=== PATIENT | female | born 1945 | race Caucasian/White ===

== ENCOUNTER 2021-08-03 06:17 | Inpatient (IN) | payer OTHER, MEDICAID ==
[~2021-08-03] VITALS: Ht 162.6 cm; Wt 49.0 kg
[2021-08-03] MEDS: BUDESONIDE (INHALATION) 180 MCG IH IN SCH (05:50)
[2021-08-03] MEDS ORDERED: SODIUM CHLORIDE 0.9% 1,000 ML IVB ONE (08:30)
[2021-08-03] MEDS ORDERED: SODIUM CHLORIDE 0.9% 1,000 ML IV ONE (08:30)
[2021-08-03] MEDS ORDERED: CHOLECALCIFEROL (VITD3) 2,000 UNIT CAP/TAB PO ONE (10:00)
[2021-08-03] MEDS ORDERED: ZINC SULFATE 220mg CAP or TAB PO ONE (10:00)
[2021-08-03] MEDS ORDERED: cefTRIAXone 1GM/50ML D5W 50 ML IV ONE (10:00)
[2021-08-03] MEDS ORDERED: DexAMETHasone SOD PHOS 10MG/1ML VIAL INJ IV ONE (10:00)
[2021-08-03] MEDS ORDERED: ASCORBIC ACID 500 MG TAB PO ONE (10:00)
[2021-08-03] MEDS ORDERED: AZITHROMYCIN 500MG/ 250ML 250 ML IV ONE (10:00)
[2021-08-03 10:46] LABS: Albumin 3.3 g/dL (3.4-5.0); Calcium 8.4 mg/dL (8.5-10.1); Potassium 4.2 mmol/L (3.5-5.1)
[2021-08-03 10:51] LABS: BUN/Creatinine Ratio 20.7; Bilirubin, Total 1.1 mg/dL (0.2-1.0); Total Protein 6.7 g/dL (6.4-8.2)
[2021-08-03 11:54] LABS: Basophils # (auto) 0 10 ^3/uL (0-0.2); Basophils % (auto) 0.4 % (0.0-2.0); Eosinophils # (auto) 0 10 ^3/uL (0-0.8); Hematocrit 41.2 % (36.0-46.0); Hemoglobin 14.4 g/dL (12.2-16.2); Mean Corpuscular Hemoglobin 32.8 pg (28.0-32.0); Mean Corpuscular Volume 93.8 fL (80.0-100.0); Monocytes # (auto) 0.5 10 ^3/uL (0-1.3); Monocytes % (auto) 5.1 % (0.0-12.0); Neutrophils # (auto) 7.8 10 ^3/uL (1.6-8.6); Neutrophils % (auto) 83.5 % (37.0-80.0); Nucleated Red Blood Cells % 0.1 %; Red Blood Cells 4.39 10^6/uL (4.0-5.20); Red Cell Distribution Width 13.3 % (11.8-14.3); White Blood Cell 9.4 10^3/uL (4.4-10.8)
[2021-08-03] MEDS ORDERED: ACETAMINOPHEN 325 MG TAB PO ONE (12:00)
[2021-08-03] MEDS ORDERED: NITROGLYCERIN 0.4 MG SL TAB SL PRN (17:45)
[2021-08-03] MEDS ORDERED: MORPHINE SULFATE INJECTION 2 MG/ML SYRG IV PRN (17:45)
[2021-08-03] MEDS ORDERED: REMDESIVIR PER PHARMACY 0 ML IV SCH (19:30)
[2021-08-03 20:39] LABS: Calcium 8.4 mg/dL (8.5-10.1); Magnesium 2.8 mg/dL (1.6-2.6)
[2021-08-03 20:47] LABS: BUN/Creatinine Ratio 25.8; Bilirubin, Total 0.8 mg/dL (0.2-1.0); CRP High Sensitivity 13.2 mg/dL (< 0.3); Total Protein 6.2 g/dL (6.4-8.2)
[2021-08-03 20:55] LABS: Thyroid Stimulating Hormone 0.36 uIU/mL (0.358-3.74)
[2021-08-03 21:26] VITALS: BP 132/91
[2021-08-03] MEDS: ENOXAPARIN SOD 40 MG/0.4 ML SYRINGE SC SCH (23:06)
[2021-08-04] VITALS (8 sets, daily range): BP systolic 109–156; BP diastolic 64–91
[2021-08-04] MEDS ORDERED: TIOT1AER2 IN (00:51)
[2021-08-04] MEDS ORDERED: LISI40TA11 PO (00:51)
[2021-08-04] MEDS ORDERED: GABA600T PO (00:51)
[2021-08-04] MEDS: BUDESONIDE (INHALATION) 180 MCG IH IN SCH ×3 (06:28→22:00)
[2021-08-04 06:53] LABS: Basophils # (auto) 0 10 ^3/uL (0-0.2); Basophils % (auto) 0.2 % (0.0-2.0); Eosinophils # (auto) 0 10 ^3/uL (0-0.8); Hematocrit 41.8 % (36.0-46.0); Hemoglobin 14.8 g/dL (12.2-16.2); Lymphocytes # (auto) 1.3 10 ^3/uL (0.4-5.4); Lymphocytes % (auto) 11.1 % (10.0-50.0); Mean Corpuscular Hgb Conc. 35.5 g/dL (32.0-36.0); Monocytes # (auto) 0.4 10 ^3/uL (0-1.3); Monocytes % (auto) 3.6 % (0.0-12.0); Neutrophils # (auto) 9.9 10 ^3/uL (1.6-8.6); Neutrophils % (auto) 85.1 % (37.0-80.0); Red Blood Cells 4.49 10^6/uL (4.0-5.20); Red Cell Distribution Width 13.4 % (11.8-14.3); White Blood Cell 11.6 10^3/uL (4.4-10.8)
[2021-08-04 07:06] LABS: Calcium 8.7 mg/dL (8.5-10.1); Potassium 3.6 mmol/L (3.5-5.1)
[2021-08-04 07:11] LABS: BUN/Creatinine Ratio 44.6; Bilirubin, Total 0.7 mg/dL (0.2-1.0); INR 1.05 (0.9-1.15); Partial Thromboplastin Time 36.6 sec (23.6-33.0)
[2021-08-04] MEDS: AZITHROMYCIN 500MG/ 250ML 250 ML IV SCH (09:03)
[2021-08-04] MEDS: DexAMETHasone SOD PHOS 10MG/1ML VIAL INJ IV SCH (09:03)
[2021-08-04] MEDS: ZINC SULFATE 220mg CAP or TAB PO SCH (09:04)
[2021-08-04] MEDS: CHOLECALCIFEROL (VITD3) 2,000 UNIT CAP/TAB PO SCH (09:04)
[2021-08-04] MEDS: ASCORBIC ACID 1,000 MG TAB PO SCH (09:04)
[2021-08-04] MEDS: IVERMECTIN 3 MG TAB PO SCH (09:04)
[2021-08-04] MEDS: ENOXAPARIN SOD 40 MG/0.4 ML SYRINGE SC SCH ×2 (10:00→22:00)
[2021-08-04] MEDS: ACETAMINOPHEN 325 MG TAB PO PRN (11:34)
[2021-08-04] MEDS ORDERED: hydrALAZINE HCL 20 MG/ML VL IV PRN (12:45)
[2021-08-04] MEDS ORDERED: levoFLOXacin 500MG 100 ML IV ONE (12:45)
[2021-08-04] MEDS: GABAPENTIN 300 MG CAP PO SCH ×2 (14:20→22:00)
[2021-08-04] MEDS ORDERED: REMDESIVIR 200 MG in NS 210ml LOADING DOSE ADULT IV ONE (15:00)
[2021-08-04] MEDS: ALBUTEROL SULF HFA 90MCG INH 200DOSE IN PRN (21:31)
[2021-08-04] MEDS: ACETAMINOPHEN 500 MG TAB PO PRN (22:01)
[2021-08-04 22:26] LABS: Urine Bacteria NONE SEEN /hpf (None Seen); Urine Blood 1+ /uL (Negative); Urine Mucus FEW (None Seen); Urine Specific Gravity 1.041 (1.001-1.035); Urine WBC 2 /hpf (0 - 5)
[2021-08-05 05:00] VITALS: BP 108/64
[2021-08-05 05:47] LABS: Albumin 2.5 g/dL (3.4-5.0); BUN/Creatinine Ratio 62.3; Calcium 7.9 mg/dL (8.5-10.1); Potassium 3.1 mmol/L (3.5-5.1)
[2021-08-05 05:50] LABS: Bilirubin, Total 0.6 mg/dL (0.2-1.0); Total Protein 4.8 g/dL (6.4-8.2)
[2021-08-05] MEDS: GABAPENTIN 300 MG CAP PO SCH ×3 (06:15→22:34)
[2021-08-05 09:00] VITALS: BP 121/73
[2021-08-05] MEDS: levoFLOXacin 250MG 50 ML IV SCH (09:52)
[2021-08-05] MEDS: DexAMETHasone SOD PHOS 10MG/1ML VIAL INJ IV SCH (09:52)
[2021-08-05] MEDS: ZINC SULFATE 220mg CAP or TAB PO SCH (09:52)
[2021-08-05] MEDS: BENAZEPRIL HCL 10 MG TAB PO SCH (09:53)
[2021-08-05] MEDS: IVERMECTIN 3 MG TAB PO SCH (09:53)
[2021-08-05] MEDS: CHOLECALCIFEROL (VITD3) 2,000 UNIT CAP/TAB PO SCH (09:53)
[2021-08-05] MEDS: ENOXAPARIN SOD 40 MG/0.4 ML SYRINGE SC SCH ×2 (09:53→22:35)
[2021-08-05] MEDS: ASCORBIC ACID 1,000 MG TAB PO SCH (09:53)
[2021-08-05] MEDS ORDERED: levoFLOXacin 500MG 100 ML IV SCH (10:00)
[2021-08-05] MEDS: BUDESONIDE (INHALATION) 180 MCG IH IN SCH ×2 (10:00→21:10)
[2021-08-05] MEDS: AZITHROMYCIN 500MG/ 250ML 250 ML IV SCH (11:25)
[2021-08-05] MEDS ORDERED: POTASSIUM CHL 20 Meq TABLET PO ONE (12:00)
[2021-08-05 13:00] VITALS: BP 123/67
[2021-08-05] MEDS ORDERED: VANCOMYCIN PER PHARMACY 0 MG IV SCH (14:00)
[2021-08-05] MEDS ORDERED: VANCOMYCIN HCL 1000 MG VL IR ONE (14:00)
[2021-08-05] MEDS: REMDESIVIR 100mg 100 MG in SODIUM CHL 0.9% 230 ML IV SCH (14:50)
[2021-08-05] MEDS ORDERED: VANCOMYCIN 1GM/250ML 250 ML IV ONE (15:00)
[2021-08-05 17:00] VITALS: BP 114/67
[2021-08-05] MEDS ORDERED: Ensure HIGH Protein Chocolate 8oz Bottle PO SCH (18:00)
[2021-08-05] MEDS: Ensure HIGH Protein Chocolate 8oz Bottle PO SCH (18:37)
[2021-08-05 19:47] VITALS: BP 129/70
[2021-08-05 20:00] VITALS: BP 129/70
[2021-08-05] MEDS: ALBUTEROL SULF HFA 90MCG INH 200DOSE IN PRN (21:10)
[2021-08-06] MEDS ORDERED: VANCOMYCIN 500 MG in D5W 5% 100 ML IV SCH (03:00)
[2021-08-06] MEDS: GABAPENTIN 300 MG CAP PO SCH ×3 (05:44→21:25)
[2021-08-06 06:23] LABS: Calcium 8.4 mg/dL (8.5-10.1); Potassium 3.7 mmol/L (3.5-5.1)
[2021-08-06 06:26] LABS: Albumin 2.5 g/dL (3.4-5.0); BUN/Creatinine Ratio 64.7
[2021-08-06 06:28] LABS: Bilirubin, Total 0.6 mg/dL (0.2-1.0)
[2021-08-06] MEDS: BUDESONIDE (INHALATION) 180 MCG IH IN SCH ×2 (06:30→22:00)
[2021-08-06] MEDS: ALBUTEROL SULF HFA 90MCG INH 200DOSE IN PRN ×2 (06:30→23:34)
[2021-08-06 09:00] VITALS: BP 110/65
[2021-08-06] MEDS: levoFLOXacin 250MG 50 ML IV SCH (09:43)
[2021-08-06] MEDS: Ensure HIGH Protein Chocolate 8oz Bottle PO SCH ×3 (09:43→18:03)
[2021-08-06] MEDS: DexAMETHasone SOD PHOS 10MG/1ML VIAL INJ IV SCH (09:43)
[2021-08-06] MEDS: ZINC SULFATE 220mg CAP or TAB PO SCH (09:44)
[2021-08-06] MEDS: AZITHROMYCIN 500MG/ 250ML 250 ML IV SCH (09:44)
[2021-08-06] MEDS: ASCORBIC ACID 1,000 MG TAB PO SCH (09:45)
[2021-08-06] MEDS: IVERMECTIN 3 MG TAB PO SCH (09:45)
[2021-08-06] MEDS: CHOLECALCIFEROL (VITD3) 2,000 UNIT CAP/TAB PO SCH (09:45)
[2021-08-06] MEDS: BENAZEPRIL HCL 10 MG TAB PO SCH (09:45)
[2021-08-06] MEDS: ENOXAPARIN SOD 40 MG/0.4 ML SYRINGE SC SCH ×2 (09:46→21:25)
[2021-08-06] MEDS: ACETAMINOPHEN 325 MG TAB PO PRN (10:18)
[2021-08-06 13:00] VITALS: BP 106/60
[2021-08-06] MEDS: VANCOMYCIN 500 MG in D5W 5% 100 ML IV SCH (14:52)
[2021-08-06 17:00] VITALS: BP 126/83
[2021-08-06] MEDS: REMDESIVIR 100mg 100 MG in SODIUM CHL 0.9% 230 ML IV SCH (17:52)
[2021-08-06 22:00] VITALS: BP 128/71
[2021-08-07] MEDS: VANCOMYCIN 500 MG in D5W 5% 100 ML IV SCH (01:37)
[2021-08-07 05:00] VITALS: BP 130/78
[2021-08-07 05:41] LABS: Basophils # (auto) 0 10 ^3/uL (0-0.2); Basophils % (auto) 0.1 % (0.0-2.0); Eosinophils # (auto) 0 10 ^3/uL (0-0.8); Hematocrit 36.8 % (36.0-46.0); Lymphocytes # (auto) 0.7 10 ^3/uL (0.4-5.4); Lymphocytes % (auto) 18.1 % (10.0-50.0); Mean Corpuscular Hgb Conc. 35.4 g/dL (32.0-36.0); Mean Corpuscular Volume 93.4 fL (80.0-100.0); Monocytes # (auto) 0.3 10 ^3/uL (0-1.3); Monocytes % (auto) 6.8 % (0.0-12.0); Neutrophils # (auto) 2.9 10 ^3/uL (1.6-8.6); Red Blood Cells 3.94 10^6/uL (4.0-5.20); Red Cell Distribution Width 13.4 % (11.8-14.3); White Blood Cell 3.9 10^3/uL (4.4-10.8)
[2021-08-07 06:01] LABS: Albumin 2.4 g/dL (3.4-5.0); Calcium 8.1 mg/dL (8.5-10.1); Potassium 3.7 mmol/L (3.5-5.1)
[2021-08-07 06:03] LABS: BUN/Creatinine Ratio 56.8
[2021-08-07 06:07] LABS: Bilirubin, Total 0.4 mg/dL (0.2-1.0); Total Protein 4.7 g/dL (6.4-8.2)
[2021-08-07] MEDS: BUDESONIDE (INHALATION) 180 MCG IH IN SCH ×2 (06:09→18:45)
[2021-08-07] MEDS: GABAPENTIN 300 MG CAP PO SCH ×3 (06:15→20:55)
[2021-08-07 09:00] VITALS: BP 129/73
[2021-08-07] MEDS: Ensure HIGH Protein Chocolate 8oz Bottle PO SCH ×3 (09:00→18:18)
[2021-08-07] MEDS: IVERMECTIN 3 MG TAB PO SCH (09:39)
[2021-08-07] MEDS: CHOLECALCIFEROL (VITD3) 2,000 UNIT CAP/TAB PO SCH (09:40)
[2021-08-07] MEDS: ZINC SULFATE 220mg CAP or TAB PO SCH (09:40)
[2021-08-07] MEDS: AZITHROMYCIN 250 MG TAB PO SCH (09:40)
[2021-08-07] MEDS: ASCORBIC ACID 1,000 MG TAB PO SCH (09:40)
[2021-08-07] MEDS: ENOXAPARIN SOD 40 MG/0.4 ML SYRINGE SC SCH ×2 (09:40→20:55)
[2021-08-07] MEDS: DexAMETHasone SOD PHOS 10MG/1ML VIAL INJ IV SCH (09:41)
[2021-08-07] MEDS: BENAZEPRIL HCL 10 MG TAB PO SCH (09:44)
[2021-08-07] MEDS: ACETAMINOPHEN 500 MG TAB PO PRN (12:10)
[2021-08-07 13:00] VITALS: BP 127/67
[2021-08-07] MEDS: REMDESIVIR 100mg 100 MG in SODIUM CHL 0.9% 230 ML IV SCH (15:22)
[2021-08-07 16:36] VITALS: BP 143/89
[2021-08-07] MEDS: ALBUTEROL SULF HFA 90MCG INH 200DOSE IN PRN (20:18)
[2021-08-07] MEDS: ACETAMINOPHEN 325 MG TAB PO PRN (20:55)
[2021-08-07 22:00] VITALS: BP 126/64
[2021-08-08 05:00] VITALS: BP 117/59
[2021-08-08] MEDS: GABAPENTIN 300 MG CAP PO SCH ×2 (05:29→14:10)
[2021-08-08] MEDS: BUDESONIDE (INHALATION) 180 MCG IH IN SCH (06:03)
[2021-08-08 06:25] LABS: Albumin 2.3 g/dL (3.4-5.0); BUN/Creatinine Ratio 43.8
[2021-08-08 06:28] LABS: Bilirubin, Total 0.4 mg/dL (0.2-1.0); Total Protein 4.7 g/dL (6.4-8.2)
[2021-08-08] MEDS: Ensure HIGH Protein Chocolate 8oz Bottle PO SCH ×3 (08:00→18:00)
[2021-08-08] MEDS: ALBUTEROL SULF HFA 90MCG INH 200DOSE IN PRN (08:23)
[2021-08-08] MEDS: ZINC SULFATE 220mg CAP or TAB PO SCH (08:57)
[2021-08-08] MEDS: DexAMETHasone SOD PHOS 10MG/1ML VIAL INJ IV SCH (08:57)
[2021-08-08 09:00] VITALS: BP 122/69
[2021-08-08] MEDS: IVERMECTIN 3 MG TAB PO SCH (09:01)
[2021-08-08] MEDS: BENAZEPRIL HCL 10 MG TAB PO SCH (09:01)
[2021-08-08] MEDS: ASCORBIC ACID 1,000 MG TAB PO SCH (09:02)
[2021-08-08] MEDS: ENOXAPARIN SOD 40 MG/0.4 ML SYRINGE SC SCH (09:02)
[2021-08-08] MEDS: CHOLECALCIFEROL (VITD3) 2,000 UNIT CAP/TAB PO SCH (09:02)
[2021-08-08] MEDS: AZITHROMYCIN 250 MG TAB PO SCH (09:02)
[2021-08-08] MEDS: ACETAMINOPHEN 325 MG TAB PO PRN (09:05)
[2021-08-08 13:00] VITALS: BP 123/69
[2021-08-08] MEDS: REMDESIVIR 100mg 100 MG in SODIUM CHL 0.9% 230 ML IV SCH (15:05)
[2021-08-08 17:00] VITALS: BP 125/80
[2021-08-08 17:03] VITALS: BP 125/80
[2021-08-09] MEDS ORDERED: AZITHROMYCIN 250 MG TAB PO SCH (10:00)
== END 2021-08-08 18:10 | disposition home or self-care (01) | DRG 871 ==
LOC: EDBD 06:17 → ER 06:17 → TELE 17:32 → TELE-EAST 21:05
PROVIDERS: ADMIT Hospitalist; ATTEND Internal Medicine Geriatric Medicine
PROC: XW033E5 Introduction of Remdesivir Anti-infective into Peripheral Vein, Percutaneous Approach, New Technology Group 5 (ICD-10-PCS; principal; 2021-08-04)
DX: A41.9 Sepsis, unspecified organism (principal); U07.1 COVID-19; J12.82 Pneumonia due to coronavirus disease 2019; E43 Unspecified severe protein-calorie malnutrition; J96.21 Acute and chronic respiratory failure with hypoxia; E44.1 Mild protein-calorie malnutrition; J44.0 Chronic obstructive pulmonary disease with (acute) lower respiratory infection; J45.901 Unspecified asthma with (acute) exacerbation; J98.11 Atelectasis; I11.9 Hypertensive heart disease without heart failure; M79.7 Fibromyalgia; M81.0 Age-related osteoporosis without current pathological fracture; G25.0 Essential tremor; Z66 Do not resuscitate; Z81.0 Family history of intellectual disabilities; M19.90 Unspecified osteoarthritis, unspecified site; Z79.899 Other long term (current) drug therapy; Z82.49 Family history of ischemic heart disease and other diseases of the circulatory system; Z23 Encounter for immunization
CPT/HCPCS: 36415; 71045; 80053; 80202; 81001; 82306; 82607; 82728; 83036; 83605; 83615; 83735; 83880; 84100; 84443; 84484; 85025; 85379; 85610; 85730; 86141; 86160; 87040; 87077; 87086; 87186; 87426; 87493; 93005; 94640; 96361; 96365; 96368; 97110; 97116; 97163; 97530; G0378; J0696; J1100; J1956; J7060

== ENCOUNTER 2022-05-23 18:56 | Emergency (ER) | payer OTHER, MEDICAID ==
[~2022-05-23] VITALS: Ht 165.1 cm; Wt 45.5 kg
[~2022-05-23 18:56] MED LIST: GABA600T PO; LISI40TA11 PO; TIOT1AER2 IN
[2022-05-23 19:46] LABS: Basophils # (auto) 0.1 10 ^3/uL (0-0.2); Basophils % (auto) 0.5 % (0.0-2.0); Eosinophils # (auto) 0.1 10 ^3/uL (0-0.8); Eosinophils % (auto) 0.8 % (0.0-7.0); Hemoglobin 14.5 g/dL (12.2-16.2); Lymphocytes # (auto) 1.7 10 ^3/uL (0.4-5.4); Lymphocytes % (auto) 12.5 % (10.0-50.0); Mean Corpuscular Hemoglobin 32.1 pg (28.0-32.0); Mean Corpuscular Hgb Conc. 33.8 g/dL (32.0-36.0); Mean Corpuscular Volume 94.9 fL (80.0-100.0); Monocytes # (auto) 0.3 10 ^3/uL (0-1.3); Monocytes % (auto) 2.6 % (0.0-12.0); Neutrophils # (auto) 11.1 10 ^3/uL (1.6-8.6); Neutrophils % (auto) 83.6 % (37.0-80.0); Nucleated Red Blood Cells % 0.1 %; Red Blood Cells 4.53 10^6/uL (4.0-5.20); Red Cell Distribution Width 12.9 % (11.8-14.3); White Blood Cell 13.2 10^3/uL (4.4-10.8)
[2022-05-23 20:21] LABS: Albumin 3.2 g/dL (3.4-5.0); BUN/Creatinine Ratio 38.5; Calcium 8.9 mg/dL (8.5-10.1); Potassium 4.2 mmol/L (3.5-5.1)
[2022-05-23 20:24] LABS: Bilirubin, Total 0.6 mg/dL (0.2-1.0); Total Protein 6.3 g/dL (6.4-8.2)
[2022-05-23 21:07] VITALS: BP 112/71
== END 2022-05-23 21:33 | disposition home or self-care (01) ==
LOC: EDBD 18:56 → ER 18:56
DX: J44.9 Chronic obstructive pulmonary disease, unspecified (principal); Z79.899 Other long term (current) drug therapy; Z88.0 Allergy status to penicillin; Z88.8 Allergy status to other drugs, medicaments and biological substances
CPT/HCPCS: 36415; 71045; 80053; 85025

== ENCOUNTER 2024-02-18 08:30 | Inpatient (IN) | payer OTHER, MEDICAID ==
[~2024-02-18] VITALS: Ht 157.5 cm; Wt 53.9 kg
[2024-02-18] VITALS (9 sets, daily range): BP systolic 112–150; BP diastolic 63–67; PULSE 50–82; RESP 12–20; TEMP 97.5–98.3; O2SAT 0–98
[~2024-02-18 08:30] MED LIST changes: -LISI40TA11 PO; +LISI40TA16 PO
[2024-02-18 09:28] LABS: Basophils # (auto) 0.1 10 ^3/uL (0-0.2); Basophils % (auto) 1.2 % (0.0-2.0); Eosinophils # (auto) 0.2 10 ^3/uL (0-0.8); Eosinophils % (auto) 3.7 % (0.0-7.0); Hematocrit 42.8 % (36.0-46.0); Hemoglobin 14.9 g/dL (12.2-16.2); Lymphocytes # (auto) 3.4 10 ^3/uL (0.4-5.4); Lymphocytes % (auto) 60.3 % (10.0-50.0); Mean Corpuscular Hemoglobin 33.7 pg (28.0-32.0); Mean Corpuscular Hgb Conc. 34.8 g/dL (32.0-36.0); Mean Corpuscular Volume 96.8 fL (80.0-100.0); Monocytes # (auto) 0.3 10 ^3/uL (0-1.3); Monocytes % (auto) 5.6 % (0.0-12.0); Neutrophils # (auto) 1.7 10 ^3/uL (1.6-8.6); Neutrophils % (auto) 29.2 % (37.0-80.0); Nucleated Red Blood Cells % 0.3 %; Red Blood Cells 4.42 10^6/uL (4.0-5.20); Red Cell Distribution Width 13.4 % (11.8-14.3); White Blood Cell 5.7 10^3/uL (4.4-10.8)
[2024-02-18 09:50] LABS: INR 0.98 (0.9-1.15); Prothrombin Time 10.4 sec (9.3-11.8)
[2024-02-18 10:02] LABS: Alanine Aminotransferase 18 U/L (7-40); Albumin 4.1 g/dL (3.2-4.8); Alkaline Phosphatase 116 U/L (46-116); Anion Gap 5 (5-15); Aspartate Aminotransferase 17 U/L (13-40); BUN/Creatinine Ratio 21.5 (10.0-20.0); Bilirubin, Total 0.4 mg/dL (0.2-1.0); Blood Urea Nitrogen 14 mg/dL (9-23); Carbon Dioxide 25 mmol/L (20-30); Chloride 110 mmol/L (98-107); Glucose 78 mg/dL (74-106); Potassium 4.2 mmol/L (3.5-5.1); Sodium 140 mmol/L (136-145); Total Protein 5.9 g/dL (5.7-8.2)
[2024-02-18] MEDS: ALBUTEROL SULF 2.5 MG/0.5ML(0.5%) NEB SOLN NEB ONE (10:14)
[2024-02-18 10:18] LABS: Calcium 9.7 mg/dL (8.7-10.4)
[2024-02-18] MEDS: IOHEXOL 350 MG/ML 100ML IJ ONE (11:43)
[2024-02-18] MEDS: MAGNESIUM SULFATE 1GM/100ML 100 ML IV SCH (11:50)
[2024-02-18] MEDS: HYDROCORTISONE SOD SUCC 100 MG/2ML INJ VIAL IV ONE (11:50)
[2024-02-18] MEDS: MORPHINE SULFATE 4 MG/ML SYR/VIAL IV ONE (11:53)
[2024-02-18 11:54] LABS: Urine Bacteria FEW /hpf (None Seen); Urine Blood Negative /uL (Negative); Urine Clarity Turbid (Clear); Urine Color STRAW (Yellow); Urine Protein, UAD Negative (Negative); Urine Specific Gravity 1.006 (1.001-1.035); Urine Urobilinogen Normal (Negative); Urine WBC 40 /hpf (0 - 5)
[2024-02-18] MEDS: HYDROcodone-ACET 5/325MG TAB PO ONE (13:34)
[2024-02-18] MEDS ORDERED: ACETAMINOPHEN 325 MG TAB PO PRN (14:45)
[2024-02-18] MEDS ORDERED: HYDROcodone-ACET 5/325MG TAB PO PRN (14:45)
[2024-02-18] MEDS ORDERED: MORPHINE SULFATE INJ 2 MG/ml SYRG IV PRN (14:45)
[2024-02-18] MEDS ORDERED: NITROGLYCERIN 0.4 MG SL TAB SL PRN (14:45)
[2024-02-18] MEDS ORDERED: ALBUTEROL SULF 2.5 MG/0.5ML(0.5%) NEB SOLN NEB PRN (15:00)
[2024-02-18 15:22] LABS: Triglycerides 59 mg/dL (< 150)
[2024-02-18 15:23] LABS: LDL Cholesterol 94 mg/dL (< 100)
[2024-02-18 15:24] LABS: Cholesterol 146 mg/dL (< 200); HDL Cholesterol 38 mg/dL (40-59)
[2024-02-18] MEDS: cefTRIAXone 1GM/50ML D5W 50 ML IV ONE (15:44)
[2024-02-18] MEDS: SODIUM CHLORIDE 0.9% 1,000 ML IV SCH ×2 (15:44→16:15)
[2024-02-18] MEDS ORDERED: DOCUSATE SOD 100 MG CAP PO PRN (16:00)
[2024-02-18] MEDS ORDERED: cefTRIAXone 1GM/50ML D5W 50 ML IV ONE (16:00)
[2024-02-18] MEDS: ALBUTEROL SULF 2.5 MG/0.5ML(0.5%) NEB SOLN NEB SCH (18:40)
[2024-02-18] MEDS: IPRATROPIUM BROM 0.5 MG/2.5ML INH SOL NEB SCH (18:40)
[2024-02-18] MEDS ORDERED: FLUT0.05 NAS (19:36)
[2024-02-18] MEDS ORDERED: PRIM50TA5 GT (19:36)
[2024-02-18] MEDS ORDERED: ALEN70TA74 PO (19:36)
[2024-02-18] MEDS ORDERED: MIRT-94 OR (19:36)
[2024-02-18] MEDS ORDERED: HYDR1TAB97 PO (19:36)
[2024-02-18] MEDS ORDERED: TIOT18CA3 IN (19:36)
[2024-02-18] MEDS ORDERED: DULO1CAP5 PO (19:36)
[2024-02-18 20:52] LABS: Amphetamine Screen, Urine Neg (NEGATIVE); Barbiturate Scree,Urine Pos (NEGATIVE); Benzodiazephine Screen, Urine Neg (NEGATIVE); Cannabinoid Screen, Urine Pos (NEGATIVE); Cocaine Screen, Urine Neg (NEGATIVE); Opiate Scree,Urine Neg (NEGATIVE); Phencyclidine Screen, Urine Neg (NEGATIVE)
[2024-02-18] MEDS: GABAPENTIN 300 MG CAP PO SCH (21:16)
[2024-02-18] MEDS: ACETAMINOPHEN 325 MG TAB PO PRN (22:32)
[2024-02-19] VITALS (11 sets, daily range): BP systolic 115–143; BP diastolic 52–89; PULSE 61–77; RESP 14–19; TEMP 97.7–98.1; O2SAT 90–100
[2024-02-19 05:20] LABS: Basophils # (auto) 0 10 ^3/uL (0-0.2); Basophils % (auto) 0.6 % (0.0-2.0); Eosinophils # (auto) 0.1 10 ^3/uL (0-0.8); Eosinophils % (auto) 0.9 % (0.0-7.0); Hematocrit 37.9 % (36.0-46.0); Hemoglobin 12.8 g/dL (12.2-16.2); Lymphocytes # (auto) 2.4 10 ^3/uL (0.4-5.4); Lymphocytes % (auto) 40.8 % (10.0-50.0); Mean Corpuscular Hemoglobin 32.2 pg (28.0-32.0); Mean Corpuscular Hgb Conc. 33.8 g/dL (32.0-36.0); Mean Corpuscular Volume 95.3 fL (80.0-100.0); Monocytes # (auto) 0.4 10 ^3/uL (0-1.3); Neutrophils # (auto) 3.1 10 ^3/uL (1.6-8.6); Neutrophils % (auto) 51.7 % (37.0-80.0); Nucleated Red Blood Cells % 0.2 %; Red Blood Cells 3.97 10^6/uL (4.0-5.20); Red Cell Distribution Width 13.3 % (11.8-14.3)
[2024-02-19 05:38] LABS: Alanine Aminotransferase 12 U/L (7-40); Albumin 3.5 g/dL (3.2-4.8); Alkaline Phosphatase 90 U/L (46-116); Anion Gap 5 (5-15); Aspartate Aminotransferase 8 U/L (13-40); Blood Urea Nitrogen 11 mg/dL (9-23); Calcium 8.8 mg/dL (8.5-10.1); Carbon Dioxide 24 mmol/L (20-30); Chloride 112 mmol/L (98-107); Glucose 98 mg/dL (74-106); Potassium 3.4 mmol/L (3.5-5.1); Sodium 141 mmol/L (136-145)
[2024-02-19 05:39] LABS: Bilirubin, Total 0.4 mg/dL (0.2-1.0)
[2024-02-19] MEDS ORDERED: cefTRIAXone 1GM/50ML D5W 50 ML IV SCH (09:00)
[2024-02-19] MEDS ORDERED: ENOXAPARIN SOD 40 MG/0.4 ML SYRINGE SC SCH (10:00)
[2024-02-19] MEDS: LISINOPRIL 20 MG TAB PO SCH (10:16)
[2024-02-19] MEDS: ENOXAPARIN SOD 40 MG/0.4 ML SYRINGE SC SCH (10:16)
[2024-02-19] MEDS: cefTRIAXone 1GM/50ML D5W 50 ML IV SCH (10:17)
[2024-02-19] MEDS: HYDROcodone-ACET 5/325MG TAB PO PRN (10:30)
== END 2024-02-19 13:32 | disposition home or self-care (01) | DRG 206 ==
LOC: ER 08:30 → TELE 14:45 → TELE-CENTR 17:07
PROVIDERS: ADMIT Nurse Practitioner Family; ATTEND Nurse Practitioner Family
DX: M94.0 Chondrocostal junction syndrome [Tietze] (principal); J98.11 Atelectasis; N30.00 Acute cystitis without hematuria; G89.4 Chronic pain syndrome; F03.90 Unspecified dementia, unspecified severity, without behavioral disturbance, psychotic disturbance, mood disturbance, and anxiety; F12.20 Cannabis dependence, uncomplicated; J44.9 Chronic obstructive pulmonary disease, unspecified; I44.4 Left anterior fascicular block; M81.0 Age-related osteoporosis without current pathological fracture; R00.1 Bradycardia, unspecified; F17.210 Nicotine dependence, cigarettes, uncomplicated; Z88.5 Allergy status to narcotic agent; Z88.0 Allergy status to penicillin; Z88.8 Allergy status to other drugs, medicaments and biological substances; Z79.82 Long term (current) use of aspirin; Z87.440 Personal history of urinary (tract) infections; Z85.3 Personal history of malignant neoplasm of breast; Z90.13 Acquired absence of bilateral breasts and nipples; Z82.49 Family history of ischemic heart disease and other diseases of the circulatory system; Z90.710 Acquired absence of both cervix and uterus
CPT/HCPCS: 36415; 71045; 71275; 80053; 80061; 80307; 81001; 83880; 84443; 84484; 85025; 85610; 87086; 93005; 94640; 96365; 96366; 96367; 96372; 96375; 97163; G0378